=== PATIENT | female | born 1985 | race Caucasian/White ===

== ENCOUNTER 2025-10-15 14:43 | Emergency (ER) | payer BC ==
[~2025-10-15] VITALS: Ht 172.7 cm; Wt 104.3 kg
[2025-10-15 15:03] VITALS: BP 128/95
[2025-10-15] MEDS ORDERED: METH4TAB3 PO (15:38)
[2025-10-15] MEDS ORDERED: IBUP600T51 PO (15:38)
[2025-10-15] MEDS ORDERED: LIDO700A30 TP (15:38)
[2025-10-15] MEDS ORDERED: CYCL5TAB4 PO (15:38)
[2025-10-15 15:57] VITALS: BP 128/95; O2SAT 98
== END 2025-10-15 15:57 | disposition home or self-care (01) ==
LOC: ER 14:43
DX: M54.12 Radiculopathy, cervical region (principal); M54.41 Lumbago with sciatica, right side; M54.2 Cervicalgia; M54.9 Dorsalgia, unspecified; E11.9 Type 2 diabetes mellitus without complications
CPT/HCPCS: A4606; A4663